=== PATIENT | female | born 1955 ===

== ENCOUNTER 2020-10-22 07:57 | Day surgery (SDC) | payer OTHER ==
[~2020-10-22 07:57] MED LIST: GABAPENTIN600 MG PO; PANADOL PO; TOPROL XL25 M1 PO; ZOLOFT50 MG PO; [UNRECOGNIZED DRUG - OTHER] PO
== END 2020-10-22 19:40 | disposition home or self-care (01) ==
LOC: CIR.AMB 07:57
PROVIDERS: ATTEND Colon & Rectal Surgery
DX: A63.0 Anogenital (venereal) warts (principal); Z20.822 Contact with and (suspected) exposure to COVID-19